=== PATIENT | female | born 1955 | race Caucasian/White ===

== ENCOUNTER 2019-12-15 11:29 | Emergency (ER) | payer MEDICAID ==
[~2019-12-15] VITALS: Ht 167.6 cm; Wt 83.9 kg
--- NOTE | 2019-12-15 11:45 | NUR ---
[id number], "RLE AND SOFIE JERICHO"S THAT STARTED AT 0900. PATIENT A/OX4, BREATHING EVEN AND UNLABORED, PATIENT'S SPEECH UNABLE TO UNDERSTAND EXCEPT FOR "YES" PATIENT ABLE TO COMMUNICATE VIA GESTURES, WHICH IS REPORTED PATIENT'S BASELINE AT FACILITY.
[2019-12-15 12:07] LABS: BASOPHILS % (AUTO) 0.4 % (0.0-2.0); EOSINOPHILS % (AUTO) 1.6 % (0.0-6.0); HEMATOCRIT 42 % (33-45); HEMOGLOBIN 13.9 g/dL (11.5-14.8); LYMPHOCYTES # (AUTO) 2.7 /CMM (0.8-4.8); LYMPHOCYTES % (AUTO) 39.2 % (20.0-44.0); MEAN CORPUSCULAR HGB CONC 33 g/dl (31.0-36.0); MEAN CORPUSCULAR VOLUME 89 fL (82-100); MONOCYTES # (AUTO) 0.4 /CMM (0.1-1.30); MONOCYTES % (AUTO) 6.4 % (2.0-12.0); NEUTROPHILS # (AUTO) 3.7 /CMM (1.8-8.9); NEUTROPHILS % (AUTO) 52.4 % (43.0-81.0); PLATELET COUNT (AUTO) 262 /CMM (150-450); RED BLOOD CELL COUNT(AUTO) 4.71 MIL/uL (4.0-5.2)
[2019-12-15 12:28] LABS: ALANINE AMINOTRANSFERASE 26 U/L (12-78); ALBUMIN 3.5 g/dL (3.4-5.0); ALKALINE PHOSPHATASE 59 U/L (46-116); ASPARTATE AMINOTRANSFERASE 15 U/L (15-37); BILIRUBIN,DIRECT 0.1 mg/dL (0.0-0.2); BILIRUBIN,TOTAL 0.3 mg/dL (0.2-1.0); CALCIUM, SERUM 8.9 mg/dL (8.5-10.1); CARBON DIOXIDE 31 mmol/L (21-32); CHLORIDE 105 mmol/L (98-107); CREATININE 0.9 mg/dL (0.6-1.3); GLUCOSE 117 mg/dL (74-106); POTASSIUM 3.5 mmol/L (3.5-5.1); SODIUM SERUM 143 mmol/L (136-145); TOTAL PROTEIN, SERUM 6.7 g/dL (6.4-8.2); UREA NITROGEN, BLOOD 15 mg/dL (7-18)
--- NOTE | 2019-12-15 13:09 | NUR ---
PATIENT RESTING, NO DISTRESS NOTED.
--- NOTE | 2019-12-15 13:22 | NUR ---
CALLED [facility] FOR TRANSPORT TO [facility]. ETA 30 MINUTES.
--- NOTE | 2019-12-15 13:52 | NUR ---
INFORMED RN SUP AT [facility].
[2019-12-15] MEDS ORDERED: AMLODIPINE BESYLATE 5 MG TABLET ONE (14:13)
[2019-12-15] MEDS: AMLODIPINE BESYLATE 5 MG TABLET PO ONE (14:16)
--- NOTE | 2019-12-15 14:23 | NUR ---
EMT AT BEDSIDE, REPORT GIVEN. ATTEMPTED TO CALL [facility] FOR REPORT, BUT WAS ON HOLD FOR MORE THAN 10 MINUTES. PATIENT'S BLOOD PRESSURE BECAME ELEVATED. DR. CRANE MADE AWARE.
[2019-12-15] MEDS ORDERED: ENALAPRILAT INJ (1.25 MG/ML) 1.25 MG/ML VIAL IV ONE (15:19)
[2019-12-15] MEDS: ENALAPRILAT INJ (1.25 MG/ML) 1.25 MG/ML VIAL IV PRN (15:23)
--- NOTE | 2019-12-15 15:59 | NUR ---
CALLED [facility] FOR TRANSPORT TO [facility]. ETA 1630.
--- NOTE | 2019-12-15 16:02 | NUR ---
REPORT GIVEN TO MECHELLE CASPER.
--- NOTE | 2019-12-15 17:10 | NUR ---
DISCHARGE BACK TO SNF IN STABLE CONDITION VIA AMBULANCE.
[2019-12-15 17:11] VITALS: BP 149/76
== END 2019-12-15 17:13 | disposition home or self-care (01) ==
LOC: ER 11:30
DX: R20.2 Paresthesia of skin (principal); G40.909 Epilepsy, unspecified, not intractable, without status epilepticus; I10 Essential (primary) hypertension; K21.9 Gastro-esophageal reflux disease without esophagitis; E11.9 Type 2 diabetes mellitus without complications; Z86.73 Personal history of transient ischemic attack (TIA), and cerebral infarction without residual deficits
CPT/HCPCS: 36415; 70450; 71045; 80048; 80076; 84484; 85025; 85730; 93005; 96374; 99285; J3490